=== PATIENT | female | born 1990 | race African-American/Black ===

== ENCOUNTER 2021-07-26 18:46 | Emergency (ER) | payer OTHER ==
[~2021-07-26] VITALS: Ht 175.3 cm; Wt 80.0 kg
[2021-07-26 19:10] VITALS: BP 131/89
[2021-07-27] MEDS ORDERED: NAPR-1176 MT (15:08)
== END 2021-07-26 21:59 | disposition left against medical advice (07) ==
LOC: ER 18:46
DX: Z53.21 Procedure and treatment not carried out due to patient leaving prior to being seen by health care provider (principal)

== ENCOUNTER 2021-07-27 13:15 | Emergency (ER) | payer OTHER ==
[~2021-07-27] VITALS: Ht 175.3 cm; Wt 80.0 kg
[2021-07-27 13:24] VITALS: BP 135/90
[2021-07-27] MEDS ORDERED: NAPR-1176 MT (15:08)
== END 2021-07-27 15:29 | disposition home or self-care (01) ==
LOC: ER 13:15
DX: M54.50 Low back pain, unspecified (principal); G89.29 Other chronic pain; Z87.828 Personal history of other (healed) physical injury and trauma
CPT/HCPCS: 81025; 99282